=== PATIENT | female | born 1990 | race Caucasian/White ===

== ENCOUNTER 2016-07-13 09:08 | Emergency (ER) | payer MEDICAID, OTHER ==
[2016-07-13 10:03] VITALS: BP 157/83
[2016-07-13] MEDS ORDERED: Ondansetron ODT TAB* 4 MG PO ONE (10:16)
[2016-07-13] MEDS ORDERED: Ketorolac INJ* 60 MG/2 ML VIAL IM ONE (10:26)
--- NOTE | 2016-07-13 10:38 | UC ---
Complaint Female HPI - HPI Summary HPI Summary: patient is a 25yo with a CC of bleeding, cramping and passing clots x 4 months. a paraguard was placed 2013 with no complications until 4 months ago. At that time she began with severe cramps and clotting. she states she has had a CT scan and an US which showed the paraguard in place. She was seen at 4 months ago and was diagnosed with a UTI and BV. At that time her symptoms were similiar to todays visit. She denies fever. Her pain in the back is intermittent and states she has a history of kidney stones. Patient has Hep C and is on suboxone. - History Of Current Complaint Chief Complaint: UC Stated Complaint: PELVIC PAIN Hx Obtained From: Patient Hx Last Menstrual Period: HAS AN IUD. HAS BLEEDING AND SPOTTING FOR SEVERAL MONTHS ?: No Onset/Duration: Gradual Onset Timing: Constant Severity Initially: Moderate Severity Currently: Moderate Pain Intensity: 5 Pain Scale Used: 0-10 Numeric Radiates to: back - intermittently Character: Sharp, Cramping Aggravating Factor(s): Nothing Alleviating Factor(s): Meds Associated Signs And Symptoms: Positive: Back Pain, Vaginal Bleeding/Discharge, Nausea Related Hx: Similar Episode/Dx as: - previous UTI/ possible pyelonephritis diagnoses - Risk Factors Ectopic Risk Factor: Negative Ovarian Torsion Risk Factor: Reproductive Age - Allergies/Home Medications Allergies/Adverse Reactions: Allergies Allergy/AdvReac Type Severity Reaction Status Date / Time Bee Pollen Allergy Hives Verified 07/13/16 09:50 Cefprozil [From Cefzil] Allergy Hives Verified 07/13/16 09:50 Home Medications: Home Medications Buprenorphine HCl-Naloxone HCl [Suboxone] 6 mg PO BID 07/13/16 [History Confirmed 07/13/16] Paraguard Iud 07/13/16 [History] Sertraline* [Zoloft*] 25 mg PO DAILY 07/13/16 [History Confirmed 07/13/16] PMH/Surg Hx/FS Hx/Imm Hx Previously Healthy: Yes Endocrine History Of: Denies: Diabetes Cardiovascular History Of: Denies: Cardiac Disorders Respiratory History Of: Denies: Asthma Other History Of: Hepatitis C - Surgical History Surgical History: Yes Surgery Procedure, Year, and Place: Gall bladder - Family History Known Family History: Negative: Cardiac Disease, Hypertension, Diabetes - Social History Occupation: Employed Full-time Lives: With Family Alcohol Use: None Substance Use Type: Heroin Substance Use Comment - Amount & Last Used: 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 , clean since 10/16/15 Smoking Status (MU): Heavy Every Day Tobacco Smoker Amount Used/How Often: 1/2 ppd Length of Time of Smoking/Using Tobacco: started age 13 Review of Systems Constitutional: Negative Eyes: Negative ENT: Negative Respiratory: Negative Cardiovascular: Negative Gastrointestinal: Abdominal Pain Genitourinary: Dysuria, Frequency, Urgency, Other - vaginal bleeding, clotting Motor: Negative Musculoskeletal: Negative All Other Systems Reviewed And Are Negative: Yes Physical Exam Triage Information Reviewed: Yes Appearance: Well-Appearing, Well-Nourished, Pain Distress Vital Signs: Initial Vital Signs Temp 99.2 F 07/13/16 09:54 Pulse 86 07/13/16 09:54 Resp 18 07/13/16 09:54 BP 157/83 07/13/16 09:54 Pulse Ox 100 07/13/16 09:54 Vital Signs Reviewed: Yes Eye Exam: Normal Eyes: Positive: Conjunctiva Clear ENT Exam: Normal ENT: Positive: Normal ENT inspection Neck exam: Normal Neck: Positive: Supple Respiratory Exam: Normal Respiratory: Positive: Chest non-tender, Lungs clear Cardiovascular Exam: Normal Musculoskeletal Exam: Normal Neurological Exam: Normal Neurological: Positive: Alert Psychological Exam: Normal Psychological: Positive: Normal Response To Family Skin Exam: Normal Complaint Female Dx - Course Course Of Treatment: Patients history is consistent with IUD issues. She also has a coexisting UTI which may be affecting the kidneys. Patient encouraged to follow up with Dr. Roman (obgyn) [facility] for removal of paraguard. pelvic exam not performed as it was performed 4 months ago with same symptoms and UTI/Pyelo was diagnosed at that time. Toradol given and prescribed as patient is on suboxone. Patient agrees with plan and return precautions given. - Differential Dx/Diagnosis Differential Diagnosis/HQI/PQRI: Pelvic Inflammatory Disease, Tubo-ovarian Abscess, Urinary Tract Infection, Other - nephrolithiasis Provider Diagnoses: UTI/Pyelonephritis - Physician Notifications Instructed by Provider To: Have Pt Call For Appt. - Dr. Roman Discharge - Discharge Plan Condition: Stable Disposition: HOME Prescriptions: Ciprofloxacin TAB* [Cipro Tab*] 500 mg PO BID #28 tab Ketorolac TAB (NF) [Toradol TAB (NF)] 10 mg PO Q6H #30 tab MDD 4 Patient Education Materials: Acute Pyelonephritis (ED) Referrals: ROSIBEL Payne [Primary Care Provider] - Kaylin Roman MD [Medical Doctor] - 1 Day (Patient with Paraguard IUD seen in with symptoms of vaginal bleeding, clotting and CVA tenderness. She was seen 4 months ago for similiar symptoms and diagnosed with UTI/Pyelo and given Cipro. Since then she has had CT scan and US which showed Paraguard in place. Today, UA shows UTI. Patient is treated with Cipro and encouraged to follow up in your clinic for further evaluation of Paraguard/ contol methods. Patient Hep C positive and takes suboxone for previous drug use. ) Additional Instructions: Take probiotic on opposite schedule of antibiotic. Please follow up with your PCP next week. I have attached a OBGYN for you to follow up with next week. If you develop a fever, or pain not controlled with outpatient medications, please go to the ER. You may take Ibuprofen 600mg three times daily with meals for discomfort.
== END 2016-07-13 11:44 | disposition home or self-care (01) ==
LOC: UCCORT 09:08
DX: N39.0 Urinary tract infection, site not specified (principal); N12 Tubulo-interstitial nephritis, not specified as acute or chronic; Z97.5 Presence of (intrauterine) contraceptive device; Z88.1 Allergy status to other antibiotic agents
CPT/HCPCS: 81025; 87077; 87086; 87186; 96372; 99212; A9270-GY; G0463; J1885

== ENCOUNTER 2017-11-01 15:39 | Emergency (ER) | payer OTHER ==
[2017-11-01 16:07] VITALS: BP 115/64
--- NOTE | 2017-11-01 17:43 | UC ---
Respiratory Complaint HPI - HPI Summary HPI Summary: 27 year old female with history of PSA(s/p inpatient rehab), @ 14 weeks here for congestion and runny nose and myalgia for one week. Patient reports productive cough with green sputum. Denies n/v/d. Subjective fever. No trial of medications at home. - History of Current Complaint Chief Complaint: UCRespiratory Stated Complaint: CONGESTION Time Seen by Provider: 11/01/17 17:13 Hx Obtained From: Patient Hx Last Menstrual Period: HAS AN IUD. HAS BLEEDING AND SPOTTING FOR SEVERAL MONTHS Onset/Duration: Gradual Onset Pain Intensity: 3 Character: Cough: Productive Aggravating Factors: Recumbent Position Alleviating Factors: Nothing Associated Signs And Symptoms: Positive: Fever, Chills, URI, Nasal Congestion. Negative: Hemoptysis, Dizziness, Hoarseness, Sinus Discomfort - Allergies/Home Medications Allergies/Adverse Reactions: Allergies Allergy/AdvReac Type Severity Reaction Status Date / Time bee pollen Allergy Hives Verified 11/01/17 15:57 cefprozil [From Cefzil] Allergy Hives Verified 11/01/17 15:57 PMH/Surg Hx/FS Hx/Imm Hx Previously Healthy: Yes Other History Of: Hepatitis C - Surgical History Surgical History: Yes Surgery Procedure, Year, and Place: Gallbladder - Family History Known Family History: Negative: Cardiac Disease, Hypertension, Diabetes - Social History Alcohol Use: None Substance Use Type: None Substance Use Comment - Amount & Last Used: 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 , clean since 09/17/17 Smoking Status (MU): Heavy Every Day Tobacco Smoker Type: Cigarettes Amount Used/How Often: 1/2 ppd Length of Time of Smoking/Using Tobacco: started age 13 Household Exposure Type: Cigarettes Review of Systems Constitutional: Fever, Chills Skin: Negative Eyes: Negative ENT: Negative Respiratory: Cough Cardiovascular: Negative Gastrointestinal: Negative Genitourinary: Negative Motor: Negative Neurovascular: Negative Musculoskeletal: Negative Neurological: Negative Psychological: Negative All Other Systems Reviewed And Are Negative: Yes Physical Exam Triage Information Reviewed: Yes Appearance: Well-Appearing, No Pain Distress Vital Signs: Initial Vital Signs Temp 37.3 C 11/01/17 15:58 Pulse 95 11/01/17 15:58 Resp 26 11/01/17 15:58 BP 115/64 11/01/17 15:58 Pulse Ox 100 11/01/17 15:58 Eye Exam: Normal ENT Exam: Normal Respiratory Exam: Normal Cardiovascular Exam: Normal Abdominal Exam: Normal Neurological Exam: Normal Skin Exam: Normal UC Diagnostic Evaluation - Laboratory O2 Sat by Pulse Oximetry: 100 Respiratory Course/Dx - Differential Dx/Diagnosis Differential Diagnosis/HQI/PQRI: Bronchitis, Laryngitis, Lower Resp Infection, Sinusitis Provider Diagnoses: URI. Patient just completed addiction rehab so she did not want tylenol with codeine. Discharge - Sign-Out/Discharge Documenting (check all that apply): Discharge/Admit/Transfer - Discharge Plan Condition: Good Disposition: HOME Prescriptions: Guaifenesin/Dextromethorphan [Regla-[place] Plus Mucus-Conges] 1 cap PO Q8HR PRN #30 cap PRN Reason: Cough Patient Education Materials: Upper Respiratory Infection (ED) Referrals: ROSIBEL Payne [Primary Care Provider] - Additional Instructions: Stop smoking - Billing Disposition and Condition Condition: GOOD Disposition: HOME
== END 2017-11-01 17:49 | disposition home or self-care (01) ==
LOC: UCCORT 15:39
DX: J06.9 Acute upper respiratory infection, unspecified (principal); F17.210 Nicotine dependence, cigarettes, uncomplicated; Z88.3 Allergy status to other anti-infective agents
CPT/HCPCS: 87502; 87651; 99212; G0463